=== PATIENT | female | born 1990 | race Caucasian/White ===

== ENCOUNTER → 2018-01-22 | Outpatient (CLI) | payer OTHER ==
--- NOTE | 2018-01-22 16:16 | RAD ---
4 views right wrist 01/22/2018 2:00 AM Indication: Patient fell and injured right wrist approximately 2 weeks ago. Comparison study: None. Findings: There is no fracture or dislocation identified. No periosteal reaction or evidence of bony healing is seen. Articular surfaces are uninterrupted. Soft tissues are unremarkable. Impression: No evidence of acute osseous abnormality
== END | disposition home or self-care (01) ==
LOC: DXRAD 15:34
PROVIDERS: ATTEND Family Medicine
DX: S69.91XD Unspecified injury of right wrist, hand and finger(s), subsequent encounter (principal); X58.XXXD Exposure to other specified factors, subsequent encounter
CPT/HCPCS: 73110